=== PATIENT | male | born 2000 ===

== ENCOUNTER 2022-05-28 09:40 | Emergency (ER) | payer SELFPAY ==
[2022-05-28] MEDS ORDERED: IBUPROFEN 800 MG TAB PO ONE (11:52)
[2022-05-28] MEDS ORDERED: HYDROcodone/ACETAMINOPHEN 5-325 MG TAB PO ONE (11:52)
--- NOTE | 2022-05-28 12:00 | Emergency Department Report ---
ED Extremity Problem HPI - General Chief complaint: Extremity Injury, Lower Stated complaint: RT KNEE PAIN Time Seen by Provider: 05/28/22 11:19 Source: patient Mode of arrival: Ambulatory Limitations: No Limitations - History of Present Illness Initial comments: Healthy young male presenting with right knee pain. Patient reports he was at work he fell, he heard a pop in his right knee and he could not get up. Describes sharp pain in his knee, difficulty walking bearing weight. He reports a history of a prior dislocation in his knee but has not had any other injuries since then. No weakness numbness or paresthesia of the extremity, otherwise no head neck or back injury no chest pain nausea vomiting abdominal pain MD Complaint: extremity pain -: Sudden, hour(s) Location: right History of Same: Yes -: Yes arthralgia, No associated chest pain Quality: stabbing, aching Consistency: intermittent Improves with: immobilization, rest Worsens with: weight bearing, walking Associated Symptoms: denies other symptoms - Related Data Previous Rx's Medication Instructions Recorded Last Taken Type Ibuprofen [Motrin 800 MG tab] 800 mg PO Q8HR PRN #20 tablet 05/28/22 Unknown Rx Allergies Allergy/AdvReac Type Severity Reaction Status Date / Time No Known Allergies Allergy Verified 05/28/22 09:48 ED Review of Systems ROS: Stated complaint: RT KNEE PAIN Other details as noted in HPI Constitutional: no symptoms reported Eyes: as per HPI ENT: as per HPI Respiratory: denies: cough Cardiovascular: denies: chest pain, palpitations, dyspnea on exertion Endocrine: denies: intolerance to cold, intolerance to heat Gastrointestinal: denies: abdominal pain, nausea, vomiting Musculoskeletal: joint swelling, arthralgia. denies: back pain Skin: denies: rash, lesions Neurological: denies: headache, weakness ED Past Medical Hx - Past Medical History Previous Medical History?: No - Social History Smoking Status: Unknown if ever smoked - Medications Home Medications: Home Medications Medication Instructions Recorded Confirmed Last Taken Type Ibuprofen [Motrin 800 MG tab] 800 mg PO Q8HR PRN #20 tablet 05/28/22 Unknown Rx ED Physical Exam - General Limitations: No Limitations General appearance: alert, in no apparent distress - Head Head exam: Present: atraumatic - Eye Eye exam: Present: normal appearance - ENT ENT exam: Present: normal exam, mucous membranes moist - Neck Neck exam: Present: normal inspection. Absent: tenderness - Respiratory Respiratory exam: Present: normal lung sounds bilaterally. Absent: respiratory distress, wheezes, chest wall tenderness - Cardiovascular Cardiovascular Exam: Present: regular rate, normal rhythm - GI/Abdominal GI/Abdominal exam: Present: soft, normal bowel sounds. Absent: distended, tenderness - Extremities Exam Extremities exam: Present: tenderness, normal capillary refill, joint swelling, other (There is swelling tenderness right patellar area, mild effusion. Passive ROM. Otherwise pulses cap refill color sensation intact). Absent: full ROM - Back Exam Back exam: Present: normal inspection, full ROM - Neurological Exam Neurological exam: Present: alert, oriented X3, CN II-XII intact. Absent: normal gait, motor sensory deficit - Psychiatric Psychiatric exam: Present: normal affect, normal mood - Skin Skin exam: Present: warm, dry, intact (No bruising no ecchymosis) ED Course Vital Signs 05/28/22 09:46 Temperature 98 F Pulse Rate 98 H Respiratory 18 Rate Blood Pressure 125/79 O2 Sat by Pulse 98 Oximetry ED Medical Decision Making - Radiology Data Radiology results: report reviewed Negative for acute fracture dislocation or effusion - Medical Decision Making ealthy young male presenting with right knee pain. Patient reports he was at work he fell, he heard a pop in his right knee and he could not get up. Describes sharp pain in his knee, difficulty walking bearing weight. He reports a history of a prior dislocation in his knee but has not had any other injuries since then. No weakness numbness or paresthesia of the extremity, otherwise no head neck or back injury no chest pain nausea vomiting abdominal pain X-ray is reassuring no acute fractures or dislocation, patient is neurovascularly intact, on reevaluation moderate improvement of his pain. Will discharge home with a knee immobilizer, rice therapy, NSAIDs as well as orthopedic follow-up. Discussed all of this with patient with understanding but continues to modification as well as well as return precautions with Critical care attestation.: If time is entered above; I have spent that time in minutes in the direct care of this critically ill patient, excluding procedure time. ED Disposition Clinical Impression: Knee injury, Right knee pain Disposition: HOME / SELF CARE / HOMELESS Is pt being admited?: No Does the pt Need Aspirin: No Condition: Stable Instructions: Acute Knee Pain, Adult, How to Use Cold Therapy Prescriptions: Ibuprofen [Motrin 800 MG tab] 800 mg PO Q8HR PRN #20 tablet PRN Reason: Pain , Severe (7-10)
--- NOTE | 2022-05-28 13:07 | XRay Report ---
RIGHT KNEE 4 VIEW(S) INDICATION / CLINICAL INFORMATION: Trauma knee pain swelling difficulty walking COMPARISON: None available. FINDINGS: BONES / JOINT(S): No acute fracture or subluxation. No significant arthritis. SOFT TISSUES: Mild surrounding soft tissue swelling without significant joint effusion identified. ADDITIONAL FINDINGS: None. IMPRESSION: 1. No acute osseous process. Signer Name: Marco A Vivar MD Signed: 05/28/2022 1:03 PM Workstation Name: [employer]
[2022-05-28 15:10] VITALS: BP 128/78
== END 2022-05-28 15:10 | disposition home or self-care (01) ==
LOC: ED 09:40
DX: S89.91XA Unspecified injury of right lower leg, initial encounter (principal); W19.XXXA Unspecified fall, initial encounter; Y93.89 Activity, other specified; Y92.89 Other specified places as the place of occurrence of the external cause; Y99.8 Other external cause status
CPT/HCPCS: 99283